=== PATIENT | male | born 2000 | race Caucasian/White ===

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

== ENCOUNTER 2019-02-19 04:05 | Emergency (ER) | payer OTHER ==
[2019-02-19] MEDS: KETOROLAC 30 MG INJ IM (04:30)
[2019-02-19] MEDS: ACETAMINOPHEN 325 MG TAB PO (04:30)
== END 2019-02-19 06:52 | disposition home or self-care (01) ==
LOC: FTE 04:05
DX: S20.219A Contusion of unspecified front wall of thorax, initial encounter (principal); S30.0XXA Contusion of lower back and pelvis, initial encounter; T14.8XXA Other injury of unspecified body region, initial encounter; V43.52XA Car driver injured in collision with other type car in traffic accident, initial encounter
CPT/HCPCS: 71046; 72100; 96372; 99284-25